=== PATIENT | female | born 1950 | race Caucasian/White ===

== ENCOUNTER 2017-11-09 20:02 | Emergency (ER) | payer OTHER ==
[~2017-11-09] VITALS: Ht 167.6 cm; Wt 79.8 kg
[2017-11-09] MEDS ORDERED: JANUVIA100 MG PO (20:18)
[2017-11-09] MEDS ORDERED: CARVEDILOL12.5 MG PO (20:18)
[2017-11-09] MEDS ORDERED: PRAVASTATIN SOD40 MG PO (20:18)
[2017-11-09] MEDS ORDERED: METFORMIN HCL500 MG PO (20:18)
[2017-11-09] MEDS ORDERED: GLIMEPIRIDE2 MG PO (20:18)
[2017-11-09] MEDS ORDERED: LISINOPRIL10 MG PO (20:18)
[2017-11-09] MEDS ORDERED: ONDANSETRON HCL INJ 2 MG/ML VIAL IV STA (20:35)
[2017-11-09] MEDS ORDERED: NIFEDIPINE 10 MG CAP PO STA (20:35)
[2017-11-09] MEDS ORDERED: ONDANSETRON HCL INJ 2 MG/ML VIAL ONE (20:41)
[2017-11-09] MEDS ORDERED: NIFEDIPINE 10 MG CAP ONE (20:41)
[2017-11-09 20:43] LABS: BASOPHILS # (AUTO) 0.1 (0.0-0.1); BASOPHILS % 0.6 % (0.0-1.0); EOSINOPHILS % 0.3 % (0.0-6.0); HEMATOCRIT 41.5 % (34.2-44.1); HEMOGLOBIN 14.3 g/dL (12.0-16.0); LYMPHOCYTES # (AUTO) 2.5 (1.0-3.2); LYMPHOCYTES % 23.9 % (18.0-39.1); MEAN CORPUSCULAR HEMOGLOBIN 30.4 pg (28-32); MEAN CORPUSCULAR HGB CONC 34.5 g/dL (31-35); MEAN CORPUSCULAR VOLUME 88.3 fL (81-99); MONOCYTES # (AUTO) 0.7 (0.2-0.8); MONOCYTES % 6.9 % (4.4-11.3); NEUTROPHILS % 67.9 % (38.7-80.0); PLATELET COUNT 264 x10e3/uL (140-360); RED CELL DISTRIBUTION WIDTH 12.8 % (11.7-14.4)
[2017-11-09 20:47] LABS: INR 0.95; PROTHROMBIN TIME 13.2 seconds (11.9-14.5)
[2017-11-09 20:48] LABS: PARTIAL THROMBOPLASTIN TIME 28.7 seconds (23.8-35.5)
[2017-11-09 20:55] LABS: ALANINE AMINOTRANSFERASE 10 IU/L (0-55); ALBUMIN/GLOBULIN RATIO 1.1 (0.8-2.0); ALKALINE PHOSPHATASE 84 IU/L (40-150); BLOOD UREA NITROGEN 10 mg/dL (7-26); BUN/CREATININE RATIO 14 (6-25); CALCIUM 9.7 mg/dL (8.4-10.2); CARBON DIOXIDE 22 mmol/L (22-29); CHLORIDE 104 mmol/L (98-107); CREATINE KINASE 64 IU/L (29-168); CREATININE, SERUM 0.73 mg/dL (0.57-1.11); EST GLOMERULAR FILTRATION RATE > 60 ML/MIN (60-); GLUCOSE 158 mg/dL (74-118); MAGNESIUM 1.9 MG/DL (1.3-2.1); SODIUM 137 mmol/L (136-145)
--- NOTE | 2017-11-09 22:43 | Diagnostic Imaging Report ---
EXAM: CHEST SINGLE (PORTABLE), AP 1 view DATE: 11/09/2017 8:35 PM Time stamp on exam: 2208 hours INDICATION: High blood pressure COMPARISON: None FINDINGS: LINES/TUBES: None LUNGS: No consolidations or edema. Nonspecific nodular density in the right lung base. PLEURA: No effusions or pneumothorax. HEART AND MEDIASTINUM: Normal size and contour. BONES AND SOFT TISSUES: Acute/subacute mildly displaced right posterior sixth rib fracture. Subacute/chronic right humeral neck fracture. IMPRESSION: 1. Acute/subacute mildly displaced right posterior sixth rib fracture. 2. Subacute/chronic right humeral neck fracture. 3. Nodular density in the right lung base could represent overlapping shadows. A nonemergent follow-up PA and lateral view of the chest is recommended. Signed by: Dr. Rianna Saini M.D. on 11/09/2017 10:40 PM
--- NOTE | 2017-11-09 22:48 | Diagnostic Imaging Report ---
Examination: CT BRAIN WITHOUT CONTRAST History:Headaches. Hypertension. Comparison studies:None Technique: Axial images were obtained from the skull base to the vertex. Coronal and sagittal images reconstructed from the axial data. Intravenous contrast: None Findings: Scalp: No abnormalities. Bones: No fractures, blastic or lytic lesions. Brain sulci: Appropriate for age. Ventricles: Normal in size and configuration. No hydrocephalus. Extra-axial space: No acute abnormalities. There is a centrally calcified, hyperdense 1.6 x 1.4 x 1.6cm (superoinferior x anteroposterior x transverse dimensions) lesion in the left cerebellar convexity. Parenchyma: There are mild patchy areas of hypoattenuation in the periventricular and subcortical white matter, nonspecific. There are chronic lacunar infarcts in the right caudate head and left franco radiata. No masses, hemorrhage, or acute cortical based vascular insults. Sellar/suprasellar region: No abnormalities. Craniocervical junction: Patent foramen magnum. No Chiari one malformation. Incidental findings: Atherosclerotic calcification of the cavernous and supraclinoid internal carotid arteries. Impression: 1. No acute intracranial abnormalities. 2. Mild chronic microvascular ischemic change. 3. Chronic lacunar infarcts, as above. 4. Left cerebellar convexity probable meningioma, as above. Signed by: Dr. Tere Barriga M.D. on 11/09/2017 10:45 PM
[2017-11-09] MEDS ORDERED: HYDRALAZINE HCL 20 MG/ML VIAL IV STA (23:32)
[2017-11-09] MEDS ORDERED: ENALAPRILAT IV INJ 1.25 MG/ML VIAL IV STA (23:35)
== END 2017-11-10 03:55 | disposition home or self-care (01) ==
LOC: ER 20:02
DX: E11.649 Type 2 diabetes mellitus with hypoglycemia without coma (principal); Z79.84 Long term (current) use of oral hypoglycemic drugs; I10 Essential (primary) hypertension
CPT/HCPCS: 36415; 70450; 71045; 80053; 82550; 82553; 82948; 83735; 84484; 85025; 85610; 85730; 93005; 96374; 96376; 99284; J0360; J2405

== ENCOUNTER 2018-08-25 16:30 | Emergency (ER) | payer OTHER ==
[~2018-08-25] VITALS: Ht 167.6 cm; Wt 79.8 kg
[~2018-08-25 16:30] MED LIST: CARVEDILOL12.5 MG PO; GLIMEPIRIDE2 MG PO; JANUVIA100 MG PO; LISINOPRIL10 MG PO; METFORMIN HCL500 MG PO; PRAVASTATIN SOD40 MG PO
--- OUTSIDE RECORDS SUMMARY | 2018-08-25 16:34 | XMS REPORT ---
Author Author [facility] Address Unknown Phone Unavailable Care Team Providers Care Code Enforcement Officer Name Role Phone Eileen SINHA Unavailable Unavailable Problems This patient has no known problems. Allergies, Adverse Reactions, Alerts This patient has no known allergies or adverse reactions. Medications This patient has no known medications. Results Test Description Test Time Test Comments Text Results Atomic Results Result Comments CT BRAIN WO [place] [address] Patient Name: CHRISTI CAMPBELL MR #: [id number] : 1950 Age/Sex: 67/F Req #: [id number] Adm Physician: Ordered by: SARAH SINHA MD Report #: [id number] Location: ER Room/Bed: Procedure: [id number] CT/CT BRAIN WO Exam Date: Exam Time: REPORT STATUS: Signed Examination: CT BRAIN WITHOUT CONTRAST History:Headaches. Hypertension. Comparison studies:None Technique: Axial images were obtained from the skull base to the vertex. Coronal and sagittal images reconstructed from the axial data. Intravenous contrast: None Findings: Scalp: No abnormalities. Bones: No fractures, blastic or lytic lesions. Brain sulci: Appropriate for age. Ventricles: Normal in size and configuration. No hydrocephalus. Extra-axial space: No acute abnormalities. There is a centrally calcified, hyperdense 1.6 x 1.4 x 1.6cm (superoinferior x anteroposterior x transverse dimensions) lesion in the left cerebellar convexity. Parenchyma: There are mild patchy areas of hypoattenuation in the periventricular and subcortical white matter, nonspecific. There are chronic lacunar infarcts in the right caudate head and left franco radiata. No masses, hemorrhage, or acute cortical based vascular insults. Sellar/suprasellar region: No abnormalities. Craniocervical junction: Patent foramen magnum. No Chiari one malformation. Incidental findings: Atherosclerotic calcification of the cavernous and supraclinoid internal carotid arteries. Impression: 1. No acute intracranial abnormalities. 2. Mild chronic microvascular ischemic change. 3. Chronic lacunar infarcts, as above. 4. Left cerebellar convexity probable meningioma, as above. Signed by: Dr. Tere Barriga M.D. on 11/09/2017 10:45 PM Dictated By: TERE NICHOLAS MD 44 Transcribed By: FAIZA on 11/09/172244 COPY TO: SARAH SINHA MD CHEST SINGLE (PORTABLE) [place] [address] Patient Name: CHRISTI CAMPBELL MR #: [id number] : 1950 Age/Sex: 67/F Req #: [id number] Adm Physician: Ordered by: SARAH SINHA MD Report #: [id number] Location: ER Room/Bed: Procedure: [id number] DX/CHEST SINGLE (PORTABLE) Exam Date: Exam Time: REPORT STATUS: Signed EXAM: CHEST SINGLE (PORTABLE), AP 1 view DATE: 11/09/2017 8:35 PM Time stamp on exam: 2208 hours INDICATION: High blood pressure COMPARISON: None FINDINGS: LINES/TUBES: None LUNGS: No consolidations or edema. Nonspecific nodular density in the right lung base. PLEURA: No effusions or pneumothorax. HEART AND MEDIASTINUM: Normal size and contour. BONES AND SOFT TISSUES: Acute/subacute mildly displaced right posterior sixth rib fracture. Subacute/chronic right humeral neck fracture. IMPRESSION: 1. Acute/subacute mildly displaced right posterior sixth rib fracture. 2. Subacute/chronic right humeral neck fracture. 3. Nodular density in the right lung base could represent overlapping shadows. A nonemergent follow-up PA and lateral view of the chest is recommended. Signed by: Dr. Shauna Saini M.D. on 11/09/2017 10:40 PM Dictated By: SHAUNA SAINI MD 39 Transcribed By: FAIZA on 11/09/172239 COPY TO: SARAH SINHA MD
[2018-08-25] MEDS ORDERED: ENALAPRILAT IV INJ 1.25 MG/ML VIAL IV STA (16:40)
[2018-08-25] MEDS ORDERED: CLONIDINE HCL 0.2 MG TAB PO ONE (16:45)
--- NOTE | 2018-08-25 17:21 | Diagnostic Imaging Report ---
EXAMINATION: CHEST SINGLE (PORTABLE) INDICATION: Chest pain. Hypertension. COMPARISON: 11/09/2017 FINDINGS: TUBES and LINES: None. LUNGS: Lungs are well inflated. Lungs are clear. There is no evidence of pneumonia or pulmonary edema. PLEURA: No pleural effusion or pneumothorax. HEART AND MEDIASTINUM: Prominent heart size with pulmonary vascular congestion. BONES AND SOFT TISSUES: No acute osseous lesion. Soft tissues are unremarkable. UPPER ABDOMEN: No free air under the diaphragm. IMPRESSION: Prominent heart size with pulmonary vascular congestion. Signed by: Dr. Mark Castano M.D. on 08/25/2018 5:18 PM
[2018-08-25 17:54] LABS: BASOPHILS # (AUTO) 0.1 (0.0-0.1); BASOPHILS % 0.7 % (0.0-1.0); EOSINOPHILS # (AUTO) 0.1 (0.0-0.4); EOSINOPHILS % 1.6 % (0.0-6.0); HEMATOCRIT 36.8 % (34.2-44.1); HEMOGLOBIN 12.9 g/dL (12.0-16.0); LYMPHOCYTES % 26.3 % (18.0-39.1); MEAN CORPUSCULAR HEMOGLOBIN 29.9 pg (28-32); MEAN CORPUSCULAR HGB CONC 35.1 g/dL (31-35); MEAN CORPUSCULAR VOLUME 85.4 fL (81-99); MONOCYTES # (AUTO) 0.5 (0.2-0.8); MONOCYTES % 6.1 % (4.4-11.3); NEUTROPHILS # (AUTO) 4.9 (2.1-6.9); NEUTROPHILS % 64.8 % (38.7-80.0); PLATELET COUNT 358 x10e3/uL (140-360); RED BLOOD COUNT 4.31 x10e6/uL (3.6-5.1); RED CELL DISTRIBUTION WIDTH 12.5 % (11.7-14.4)
[2018-08-25 18:14] LABS: ALANINE AMINOTRANSFERASE 10 IU/L (0-55); ALBUMIN 3.9 g/dL (3.5-5.0); ALBUMIN/GLOBULIN RATIO 1.5 (0.8-2.0); ALKALINE PHOSPHATASE 60 IU/L (40-150); ANION GAP 16.8 mmol/L (8-16); BLOOD UREA NITROGEN 17 mg/dL (7-26); BUN/CREATININE RATIO 20 (6-25); CALCIUM 8.8 mg/dL (8.4-10.2); CARBON DIOXIDE 19 mmol/L (22-29); CHLORIDE 102 mmol/L (98-107); CREATINE KINASE 68 IU/L (29-168); CREATININE, SERUM 0.86 mg/dL (0.57-1.11); EST GLOMERULAR FILTRATION RATE > 60 ML/MIN (60-); GLUCOSE 185 mg/dL (74-118); MAGNESIUM 1.6 MG/DL (1.3-2.1); POTASSIUM 3.8 mmol/L (3.5-5.1); SODIUM 134 mmol/L (136-145)
[2018-08-25 19:09] VITALS: BP 124/75
== END 2018-08-25 19:14 | disposition home or self-care (01) ==
LOC: ER 16:33
DX: I16.0 Hypertensive urgency (principal); E87.1 Hypo-osmolality and hyponatremia; R73.9 Hyperglycemia, unspecified
CPT/HCPCS: 36415; 71045; 80053; 82550; 82553; 83735; 83880; 84484; 85025; 93005; 99283